=== PATIENT | female | born 1995 | race African-American/Black ===

== ENCOUNTER 2018-02-08 21:02 | Emergency (ER) | payer OTHER ==
[2018-02-08 22:50] LABS: KETONE, URINE AUTO RFX 2+ mg/dL (NEGATIVE); LEUKOCYTE ESTERASE UR AUTO RFX NEGATIVE (NEGATIVE); MUCUS, URINE RFX SMALL (NEGATIVE); NITRITE, URINE AUTO RFX NEGATIVE (NEGATIVE); RBC, URINE AUTO RFX 46 /HPF (0-3); SPECIFIC GRAVITY UR AUTO RFX 1.016 (1.002-1.035); SQUAM EPITHELIAL CELL UR AURFX 0 /HPF (0-6); WBC, URINE AUTO RFX 1 /HPF (0-3)
[2018-02-08 23:19] LABS: HCG, SERUM QUANTITATIVE 107191 MIU/ML
== END 2018-02-08 23:49 | disposition home or self-care (01) ==
LOC: M ED 21:02
DX: O20.0 Threatened abortion (principal); Z3A.00 Weeks of gestation of pregnancy not specified; Z79.899 Other long term (current) drug therapy
CPT/HCPCS: 84702

== ENCOUNTER → 2018-03-31 | Outpatient (CLI) | payer OTHER | LOC: M SMT 10:51 | DX: Z36.89 Encounter for other specified antenatal screening (principal) ==

== ENCOUNTER 2018-04-09 13:15 | Emergency (ER) | payer OTHER ==
[2018-04-09 14:41] LABS: BEDSIDE GLUCOSE 86 MG/DL (70-105)
== END 2018-04-09 15:41 | disposition home or self-care (01) ==
LOC: M ED 13:15
DX: O99.282 Endocrine, nutritional and metabolic diseases complicating pregnancy, second trimester (principal); O99.89 Other specified diseases and conditions complicating pregnancy, childbirth and the puerperium; R53.1 Weakness; Z3A.00 Weeks of gestation of pregnancy not specified
CPT/HCPCS: 99284

== ENCOUNTER → 2018-05-04 | Outpatient (CLI) | payer OTHER | LOC: M RAD 08:41 | DX: Z36.89 Encounter for other specified antenatal screening (principal); Z3A.19 19 weeks gestation of pregnancy | CPT/HCPCS: 76811 ==

== ENCOUNTER → 2018-06-29 | Outpatient (CLI) | payer OTHER ==
[2018-06-29 18:59] LABS: GLUCOSE CHALLENGE TEST 1 HOUR 83 MG/DL (LESS THAN 140)
[2018-06-29 19:00] LABS: HEMATOCRIT 33.8 % (36.0-47.0); HEMOGLOBIN 11.1 g/dl (12.0-15.5); MEAN CORPUSCULAR HEMOGLOBIN 27.3 pg (27.0-33.0); MEAN CORPUSCULAR HGB CONC 32.8 g/dl (32.0-36.5); PLATELET COUNT, AUTOMATED 222 10^3/uL (150-450); RED BLOOD COUNT 4.07 10^6/uL (4.00-5.40)
== END ==
LOC: M SMT 14:30
DX: Z36.89 Encounter for other specified antenatal screening (principal)
CPT/HCPCS: 82950

== ENCOUNTER → 2018-08-26 | Outpatient (REF) | payer OTHER ==
[~2018-08-26] MED LIST: PREN1PAK PO
== END ==
LOC: M LAB REF 17:17
PROVIDERS: ATTEND Advanced Practice Midwife
DX: Z36.89 Encounter for other specified antenatal screening (principal); Z34.83 Encounter for supervision of other normal pregnancy, third trimester; Z3A.00 Weeks of gestation of pregnancy not specified

== ENCOUNTER 2018-09-14 01:37 | Inpatient (IN) | payer OTHER ==
[2018-09-14] VITALS (34 sets, daily range): BP systolic 96–152; BP diastolic 54–97
[~2018-09-14] VITALS: Ht 162.6 cm; Wt 70.4 kg
[2018-09-14] MEDS ORDERED: LR 1,000 ML IV ONE (04:15)
[2018-09-14 04:26] LABS: HEMATOCRIT 33.8 % (36.0-47.0); HEMOGLOBIN 10.8 g/dl (12.0-15.5); MEAN CORPUSCULAR HEMOGLOBIN 24.2 pg (27.0-33.0); MEAN CORPUSCULAR VOLUME 75.6 fl (80.0-96.0); PLATELET COUNT, AUTOMATED 248 10^3/uL (150-450); RED BLOOD COUNT 4.47 10^6/uL (4.00-5.40); WHITE BLOOD COUNT 13.2 10^3/uL (4.0-10.0)
[2018-09-14] MEDS ORDERED: FENTANYL 2MCG/ML ROPIVACAINE 0.2% IN 0.9% NACL 100ML IVBAG As Ordered ONE (04:48)
[2018-09-14] MEDS ORDERED: LR 1,000 ML IV SCH (04:51)
--- NOTE | 2018-09-14 05:01 | NUR ---
L&D H&P HPI: 23 year old at 38+5 weeks estimated gestation. Expected date of confinement: 09/23/2018. dated by first trimester ultrasound. Presents today with painful, frequent uterine contractions. Denies vaginal bleeding, loss of fluid. Reports regular movement. course uncomplicated. labs: Blood type O+, sickle cell trait positive partner: Negative. antibody screen negative, rubella immune, VDRL nonreactive , hepatitis B surface antigen negative, HIV negative, hepatitis C antibody negative, GC/CT negative, aneuploidy/maternal serum screening: Quad screen negative, 1 hour glucose challenge test: 83, GBS negative Radiology/OB US: no anomalies or placental abnormalities detected. History Past medical history: None Surgical history:. 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 No dysplasia or STI/G HSV OB history: EAB 1, SAB 1 Social history:. No tobacco, alcohol or drug use Family history:. Hypertension, stomach cancer, esophageal cancer? Objective Vitals: Normotensive, normal heart rate, afebrile Heart: Regular rate and rhythm. No murmurs, rubs or gallops. Lungs: Clear to auscultation bilaterally. No wheezes, crackles, rales or rhonchi. Abdomen: Uterine fundal height consistent with dates. No guarding or rebound tenderness. Extremities: No clubbing, cyanosis or edema. Normal deep tendon reflexes. Sterile vaginal exam: 5 cm, 100 %effacement, -3 station, cephalic, intact External monitoring: heart rate category 1 Tocodynamometer: contractions occurring every 2-3 minutes Assessment/Plan 23 year old at 38+5 weeks gestation. Diagnosis:. Active labor at term. Reassuring and maternal status. -Admit to labor and delivery with routine labs and orders -External monitoring and tocodynamometer -Pediatrics and anesthesia consultations as needed. Dr. Jaison Salazar, DO, FACOG
[2018-09-14] MEDS ORDERED: ONDANSETRON 4MG/2ML VIAL (J2405) IV PRN (05:30)
[2018-09-14] MEDS ORDERED: REFRIGERATOR IV KEYS XX PRN (05:30)
[2018-09-14] MEDS ORDERED: EPIDURAL/PCA KEYS XX PRN (05:30)
[2018-09-14] MEDS ORDERED: LACTATED RINGER'S 1000 ML IV PRN (05:30)
[2018-09-14] MEDS ORDERED: FENTANYL/ROPIVACAINE/NACL BAG 100 ML EPIDURAL SCH (05:30)
[2018-09-14] MEDS ORDERED: diphenhydrAMINE INJ 50MG/ML VIAL (J1200) IV PRN (05:30)
[2018-09-14] MEDS ORDERED: NALOXONE INJ 0.4 MG/1 ML VIAL (J2310) IV PRN (05:30)
[2018-09-14] MEDS ORDERED: EPIDURAL COMMENT XX SCH (05:30)
[2018-09-14] MEDS ORDERED: ePHEDrine SULFATE 25 MG/5 ML(5MG/ML) SYRINGE IV PRN (05:30)
[2018-09-14] MEDS ORDERED: OXYTOCIN 30 UNITS IN 0.9% NaCl 500ML IV BAG (J2590) As Ordered ONE (08:50)
[2018-09-14] MEDS: PRENATAL VITAMINS CHEWABLE TABLET PO SCH (09:00)
--- NOTE | 2018-09-14 10:41 | IPNPDOC ---
Obstetrical Progress Note Date of Service Sep 14, 2018 Subjective Patient reports she is comfortable with her epidural and feeling slight rectal pressure. Objective Vital Signs Date Time Temp Pulse Resp B/P (MAP) Pulse Ox O2 Delivery O2 Flow Rate FiO2 09/14/18 09:56 85 18 119/78 (92) 09/14/18 09:25 98.2 Assessment Heart Rate (FHR): 120 Variability: Moderate Accelerations: Positive Decelerations: None Heart Rate Tracing: Category I Tocometer Contractions: Yes Frequency: regular Strength: palpated as strong Sterile Vaginal Examination Dilation: complete Effacement (%): 100% Station: 0 Postion/Presentation: Cephalic presentation Assessment and Plan Age: 23 : 3 Term: 0 Pre-term: 0 Abortions: 2 Livin EGA at Admission: 38.5 Status: Reassuring Group B Streptococcus: Negative Anticipate: Vaginal Delivery Additional Comments AROM to a small amount of clear fluid. CARLOS SHEA CNM Sep 14, 2018 10:41
[2018-09-14] MEDS ORDERED: OXYTOCIN DRIP 30 UNITS in APPROPRIATE DILUENT 1 EA IV SCH (13:21)
[2018-09-14] MEDS ORDERED: ANUSOL HC CREAM 30GM TOP PRN (13:30)
[2018-09-14] MEDS ORDERED: DIBUCAINE 1% OINTMENT 30GM TOP PRN (13:30)
[2018-09-14] MEDS ORDERED: LIDOCAINE 1% MDV 20ML VIAL INFIL ONE (13:30)
[2018-09-14] MEDS ORDERED: MEASLES,MUMPS,RUBELLA VACCINE INJ (MMR-II) (90707) SC SCH (13:30)
[2018-09-14] MEDS ORDERED: DOCUSATE SODIUM 100 MG CAP PO PRN (13:30)
[2018-09-14] MEDS ORDERED: RHOGAM 300 MCG (1500 IU) INJ (J2790) IM SCH (13:30)
[2018-09-14] MEDS ORDERED: METHYLERGONOVINE MALEATE 0.2 MG TAB PO PRN (13:30)
--- NOTE | 2018-09-14 13:55 | DNPDOC ---
[facility] Delivery Note Delivery Note DATE OF DELIVERY: 09/14/2018 at 1221 PREDELIVERY DIAGNOSIS: 38-5/7 weeks' gestation and labor. POST DELIVERY DIAGNOSIS: Delivered. PROCEDURE: Spontaneous vaginal delivery. DOUBLE BOTTOM DRIVER: Carlos Infante CNM, WHNP ANESTHESIA: epidural. ESTIMATED BLOOD LOSS: 300 mL. FINDINGS: 7 pounds 1 ounce; 3190 grams; male , Score 9/9. DELIVERY SUMMARY: Patient is a 23-year-old female who is a who presented to L&D in active labor. The patient received an epidural for pain management. She progressed to fully dilated at 1030 and pushed to a living female in the OA position with restitution to ROT at 1221. The anterior shoulder delivered with ease and the corpus immediately delivered. The baby was placed [id number] and was active and crying. The cord was clamped x2 after pulsation ceased and cut by the FOB. A 3-vessel cord was noted. The placenta delivered spontaneously and intact. Uterine hemostasis was achieved via fundal massage and rapid infusion of IV Pitocin. The vagina and perineum were inspected and found to have a right labial laceration that was repaired with a 3.[address]-1. The mom is naming her baby "Osmany" and she plans to breastfeed. Both mom and baby are in stable condition. CARLOS INFANTE CNM Sep 14, 2018 13:55
[2018-09-14] MEDS: IBUPROFEN 800 MG TAB PO PRN (23:10)
[2018-09-15] MEDS: ACETAMINOPHEN 500 MG TAB PO PRN ×2 (00:20→14:07)
[2018-09-15 05:57] VITALS: BP 105/57
[2018-09-15] MEDS: PRENATAL VITAMINS CHEWABLE TABLET PO SCH (08:39)
[2018-09-15] MEDS ORDERED: INFLUENZA QUADRIVALENT PF VACCINE 0.5ML SYRINGE (90686) IM ONE (09:00)
[2018-09-15] MEDS ORDERED: ADACEL/BOOSTRIX VACCINE (DIPHTH/PERTUSS/ACELL/TETANUS)0.5ML SYR (90715) IM ONE (09:00)
[2018-09-15 18:00] VITALS: BP 117/58
[2018-09-15] MEDS: IBUPROFEN 800 MG TAB PO PRN (18:37)
[2018-09-16 05:23] VITALS: BP 117/71
[2018-09-16] MEDS ORDERED: MAPA500T2 PO (07:21)
[2018-09-16] MEDS ORDERED: IBUP-1114 PO (07:21)
[2018-09-16] MEDS: PRENATAL VITAMINS CHEWABLE TABLET PO SCH (08:08)
[2018-09-16] MEDS: IBUPROFEN 800 MG TAB PO PRN (08:09)
[2018-09-16] MEDS ORDERED: INFLUENZA QUADRIVALENT PF VACCINE 0.5ML SYRINGE (90686) IM ONE (09:00)
[2018-09-16] MEDS ORDERED: ADACEL/BOOSTRIX VACCINE (DIPHTH/PERTUSS/ACELL/TETANUS)0.5ML SYR (90715) IM ONE (09:00)
--- NOTE | 2018-09-16 21:17 | IPN ---
DATE: 09/15/2018 Patient requested circumcision of their male . After discussing risks and benefits of circumcision the medical and nonmedical indications, penile block and aftercare expressed understanding of penile block aftercare and bleeding. All questions were answered and signed the consent form. We now await the clearance by the genetic counsellor.
== END 2018-09-16 13:20 | disposition home or self-care (01) | DRG 807 ==
LOC: M LDO 01:37 → M LDI 03:53 → M OBS 14:50
PROVIDERS: ADMIT Obstetrics & Gynecology; ATTEND Advanced Practice Midwife
PROC: 10E0XZZ Delivery of Products of Conception, External Approach (ICD-10-PCS; principal; 2018-09-14)
PROC: 0HQ9XZZ Repair Perineum Skin, External Approach (ICD-10-PCS; 2018-09-14)
DX: O70.0 First degree perineal laceration during delivery (principal); Z37.0 Single live birth; Z3A.38 38 weeks gestation of pregnancy